=== PATIENT | female | born 1965 | race Caucasian/White ===

== ENCOUNTER 2016-12-07 18:43 | Emergency (ER) | payer OTHER ==
[~2016-12-07] VITALS: Ht 167.6 cm; Wt 72.6 kg
[~2016-12-07 18:43] MED LIST: ASPIRIN81 M4 PO; ATORVASTATIN CA80 M1 PO; BRILINTA90 M1 PO; CYMBALTA60 M1 PO; GABAPENTIN100 M2 PO; HUMALOG100 UNIT/2 SC; LANTUS100 UNIT/1 SC; LISINOPRIL20 M1 PO; TOPIRAMATE200 M2 PO; TRAZODONE HCL100 M1 PO
[2016-12-07 19:00] VITALS: BP 118/75
[2016-12-07] MEDS ORDERED: AUGMENTIN 875-1 EACH PO (19:42)
--- NOTE | 2016-12-07 19:43 | ED EAR COMPLAINT ---
History of Present Illness General Chief Complaint: Ear Complaints Stated Complaint: EAR PAIN Source: patient Exam Limitations: no limitations Vital Signs & Intake/Output Vital Signs & Intake/Output Vital Signs Date Time Temp Pulse Resp B/P Pulse O2 O2 Flow FiO2 Ox Delivery Rate 12/07 1899 98.5 74 20 118/75 97 Room Air Allergies Coded Allergies: NO KNOWN ALLERGIES (12/07/16) Reconcile Medications Amoxicillin/Potassium Clav (Augmentin 875-125 Tablet) 875 MG-125 MG TABLET 1 TAB PO BID SINUSITIS/OTITIS MEDIA Aspirin (Aspirin*) 81 MG TAB.CHEW 81 MG PO DAILY heart health Atorvastatin Calcium 80 MG TABLET 80 MG PO 1700 cholesterol/heart health Duloxetine HCl (Cymbalta) 60 MG CAPSULE.DR 1 CAP PO DAILY DEPRESSION ( Reported) Gabapentin 100 MG CAPSULE 1 CAP PO TID neuropathy Insulin Lispro (Humalog) 100 UNIT/1 ML VIAL 0 SC DAILY DM TYPE I Blood Sugar Meal time Bed time Less than 80 0 0 80-150 3 0 151-200 4 0 201-250 5 0 251-300 6 2 301-350 8 3 351-400 9 4 more than 400 plus 9 and call doctor Insulin-Lantus (Lantus) 100 UNIT/1 ML VIAL 16 UNITS SC QAM DM TYPE 1 Lisinopril 20 MG TABLET 20 MG PO DAILY heart health Ticagrelor (Brilinta) 90 MG TABLET 90 MG PO BID heart health Topiramate 200 MG TABLET 1 TAB PO DAILY MOOD DISORDER (Reported) Trazodone HCl 100 MG TABLET 1 TAB PO QPM SLEEP (Reported) Triage Note: TRIAGE: PT TO ER C/C R EAR PAIN, ONSET MID AFTERNOON, INTERMITTENT SINCE ONSET. PAIN FREE AT TRIAGE. Triage Nurses Notes Reviewed? yes Onset: Abrupt Duration: day(s): (FEW), constant, continues in ED Timing: recent history Injury Environment: home No Modifying Factors: none HPI: 51-year-old female comes into emergency room with runny nose, congestion and right ear pain. Symptoms are going on for the past 3 days. Denies any cough. Denies any fever chills vomiting. Some whooshing noise in her right ear. Denies any other associated symptoms. (JASON CHANEL,EDWINA) Past History Travel History Traveled to [place] past 21 day No Medical History Any Pertinent Medical History? 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 No (EDWINA OCONNELL) Review of Systems Review of Systems Constitutional: Reports: no symptoms. EENTM: Reports: see HPI. Respiratory: Reports: no symptoms. Cardiovascular: Reports: no symptoms. GI: Reports: no symptoms. Genitourinary: Reports: no symptoms. Musculoskeletal: Reports: no symptoms. Skin: Reports: no symptoms. Neurological/Psychological: Reports: no symptoms. Hematologic/Endocrine: Reports: no symptoms. Immunologic/Allergic: Reports: no symptoms. All Other Systems: Reviewed and Negative (EDWINA OCONNELL) Physical Exam Physical Exam General Appearance: well developed/nourished, no apparent distress, alert, awake Head: atraumatic Eyes: Bilateral: normal appearance. Ears: Bilateral: other (SEROUS OTITIS). Nose: NASAL CONGESTION Mouth/Throat: normal mouth inspection, pharynx normal Neck: normal inspection Cardiovascular/Respiratory: normal breath sounds, no respiratory distress Back: normal inspection Neurologic/Psych: awake, alert, oriented x 3, normal mood/affect Skin: intact, normal color, warm/dry (EDWINA OCONNELL) Progress Differential Diagnoses I considered the following diagnoses in my evaluation of the patient: Otitis media, upper respiratory infection, sinusitis, pneumonia, strep pharyngitis, Plan of Care: 12/07/2016 8:19:38 PM Due to active ear pain and fluid behind the ear patient treated for serous otitis media as well as sinusitis. Follow-up with ear nose and throat. Clinically looks well. Nontoxic-appearing. Initial ED EKG: none (EDWINA OCONNELL) Departure Departure Disposition: HOME OR SELF CARE Condition: Stable Clinical Impression Primary Impression: Serous otitis media Secondary Impressions: Sinusitis Referrals: LEONARDO MELISSA,MARYAM ALANIZ MD,MIRIAN (PCP/Family) Additional Instructions: Take Augmentin as prescribed. Drink plenty of fluids. Rest. Follow-up with ear nose and throat doctorif symptoms don't resolve.. Return if any other concerns worsening symptoms. 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 I have also reviewed all the pertinent lab results and diagnostic results. I agree with the findings and the plan of care as documented in the PA's/STATISTICAL MACHINE MECHANIC's documentation. [X] I have reviewed the ED Record and agree with the PA's/STATISTICAL MACHINE MECHANIC's documentation. [] Additions or exceptions (if any) to the PAs/STATISTICAL MACHINE MECHANIC's note and plan are summarized below: [] (TERE MELISSA,BERTHA)
== END 2016-12-07 19:58 ==
LOC: ERH 18:43
DX: H65.93 Unspecified nonsuppurative otitis media, bilateral (principal); J32.9 Chronic sinusitis, unspecified; Z72.0 Tobacco use

== ENCOUNTER 2017-03-14 13:49 | Emergency (ER) | payer OTHER ==
[~2017-03-14] VITALS: Ht 167.6 cm; Wt 69.4 kg
[~2017-03-14 13:49] MED LIST changes: +AUGMENTIN 875-1 EACH PO
--- NOTE | 2017-03-14 14:22 | ED ANKLE/FOOT INJURY COMPLAINT ---
History of Present Illness General Chief Complaint: Lower Extremity Injury Stated Complaint: SON STEPPED ON FOOT, INJURY TO LEFT GREAT TOE Source: patient, old records Exam Limitations: no limitations Vital Signs & Intake/Output Vital Signs & Intake/Output Vital Signs Date Time Temp Pulse Resp B/P B/P Pulse O2 O2 Flow FiO2 Mean Ox Delivery Rate 03/14 1354 98.3 77 20 100/62 97 Room Air Allergies Coded Allergies: NO KNOWN ALLERGIES (12/07/16) Reconcile Medications Amoxicillin/Potassium Clav (Augmentin 875-125 Tablet) 875 MG-125 MG TABLET 1 TAB PO BID SINUSITIS/OTITIS MEDIA Aspirin (Aspirin*) 81 MG TAB.CHEW 81 MG PO DAILY heart health Atorvastatin Calcium 80 MG TABLET 80 MG PO 1700 cholesterol/heart health Duloxetine HCl (Cymbalta) 60 MG CAPSULE.DR 1 CAP PO DAILY DEPRESSION ( Reported) Gabapentin 100 MG CAPSULE 1 CAP PO TID neuropathy Insulin Lispro (Humalog) 100 UNIT/1 ML VIAL 0 SC DAILY DM TYPE I Blood Sugar Meal time Bed time Less than 80 0 0 80-150 3 0 151-200 4 0 201-250 5 0 251-300 6 2 301-350 8 3 351-400 9 4 more than 400 plus 9 and call doctor Insulin-Lantus (Lantus) 100 UNIT/1 ML VIAL 16 UNITS SC QAM DM TYPE 1 Lisinopril 20 MG TABLET 20 MG PO DAILY heart health Ticagrelor (Brilinta) 90 MG TABLET 90 MG PO BID heart health Topiramate 200 MG TABLET 1 TAB PO DAILY MOOD DISORDER (Reported) Trazodone HCl 100 MG TABLET 1 TAB PO QPM SLEEP (Reported) Triage Note: STATES HER SON STEPPED ON HER LEFT GREAT TOE AND HER NAIL IS COMING COMPLETELY OFF AND SHE IS DIABETIC Triage Nurses Notes Reviewed? yes Occurred: this morning Duration: hour(s):, constant, continues in ED Timing: recent history Severity: moderate Pain/Injury Location: Left: 1st toe. Method of Injury: direct blow Modifying Factors: Improves With: immobilization, rest. Worsens With: movement. Associated Symptoms: swelling, GCS 15 since, stiffness LMP (ages 10-50): post menopausal : No Patient currently breastfeeds: No HPI: Several hours prior to admission son stepped on patient's left great toe avulsing the toenail. She denies fever chills nausea vomiting diarrhea abdominal pain chest pain shortness of breath headache dysuria rash bleeding. Past History Travel History Traveled to [place] past 21 day No Medical History Any Pertinent Medical History? 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 No Review of Systems Review of Systems Constitutional: Reports: no symptoms. EENTM: Reports: no symptoms. Respiratory: Reports: no symptoms. Cardiovascular: Reports: no symptoms. GI: Reports: no symptoms. Genitourinary: Reports: no symptoms. Musculoskeletal: Reports: see HPI, joint pain. Skin: Reports: no symptoms. Neurological/Psychological: Reports: no symptoms. Hematologic/Endocrine: Reports: no symptoms. Immunologic/Allergic: Reports: no symptoms. All Other Systems: Reviewed and Negative Physical Exam Physical Exam General Appearance: well developed/nourished, alert, awake, anxious, mild distress Head: atraumatic, normal appearance Eyes: Bilateral: normal appearance, PERRL, EOMI. Ears, Nose, Throat: normal pharynx, normal ENT inspection, hearing grossly normal Neck: normal inspection, supple Cardiovascular/Respiratory: regular rate/rhythm Back: normal inspection, normal range of motion Leg/Knee/Thigh Left: normal range of motion, normal inspection Leg/Knee/Thigh Right: normal range of motion, normal inspection Ankle Left: normal inspection, normal range of motion Ankle Right: normal inspection, normal range of motion Foot Left: evidence of injury, nail injury, soft tissue tenderness Foot Right: normal inspection, normal range of motion Reflexes: 2+: knee (R), knee (L). Neuro/Vascular: normal motor function, normal sensation Tendon: normal tendon function Psychiatric: awake, alert, oriented x 3 Skin: intact, normal color, warm/dry Progress Differential Diagnosis: fracture, sprain, contusion Plan of Care: Orders Procedure Date/time Status XRY-TOES, LEFT 03/14 1417 Active Diagnostic Imaging: Viewed by Me: Radiology Read. Discussed w/RAD: Radiology Read. Radiology Impression: no acute abnormality Departure Departure Time of Disposition: 1502 Disposition: HOME OR SELF CARE Condition: Stable Clinical Impression Primary Impression: Avulsion of toenail of left foot Secondary Impressions: Diabetic foot infection Referrals: RADHA GOFF DPM Call for podiatry evaluation MIRIAN ALANIZ MD (PCP/Family) Departure Forms: Customer Survey General Discharge Information Prescriptions: Current Visit Scripts Nystatin 1 JOSUE TOP BID #1 BOT Ref 5 Ciprofloxacin HCl (Cipro) 1 TAB PO BID #20 TAB
--- NOTE | 2017-03-14 14:57 | RADIOLOGY REPORT ---
EXAMINATION: XR TOES, LEFT CLINICAL INFORMATION: Blunt trauma and nail injury of left great toe COMPARISON: None TECHNIQUE: 3 views of the left toes were obtained. FINDINGS: There is an injury of the nail of the first digit with displacement. There is no acute fracture or cortical disruption. Osseous alignment is anatomic. Joint spaces are maintained. IMPRESSION: Injury of the first digit nail. No osseous abnormality.
[2017-03-14] MEDS ORDERED: NYSTATIN1 EAC5 TOP (15:09)
[2017-03-14] MEDS ORDERED: CIPRO500 M1 PO (15:09)
[2017-03-14 15:23] VITALS: BP 105/60
== END 2017-03-14 15:24 ==
LOC: ERH 13:49
DX: S91.212A Laceration without foreign body of left great toe with damage to nail, initial encounter (principal); E11.628 Type 2 diabetes mellitus with other skin complications
CPT/HCPCS: 73660-LT

== ENCOUNTER 2018-07-10 20:25 | Emergency (ER) | payer OTHER ==
[~2018-07-10] VITALS: Ht 167.6 cm; Wt 70.3 kg
[~2018-07-10 20:25] MED LIST changes: +CIPRO500 M1 PO; +CYCLOBENZAPRINE10 M1 PO; +NYSTATIN1 EAC5 TOP; +PERCOCET 5-3251 EACH PO
--- NOTE | 2018-07-10 20:50 | ED GENERAL ADULT ---
History of Present Illness General Chief Complaint: Abdominal Pain/Flank Pain Stated Complaint: BIBA FLANK PAIN Source: patient Exam Limitations: no limitations Vital Signs & Intake/Output Vital Signs & Intake/Output Vital Signs Date Time Temp Pulse Resp B/P B/P Pulse O2 O2 Flow FiO2 Mean Ox Delivery Rate 07/10 2033 97.9 75 18 157/67 98 Room Air Allergies Coded Allergies: NO KNOWN ALLERGIES (12/07/16) Reconcile Medications Amoxicillin/Potassium Clav (Augmentin 875-125 Tablet) 875 MG-125 MG TABLET 1 TAB PO BID SINUSITIS/OTITIS MEDIA Aspirin (Aspirin*) 81 MG TAB.CHEW 81 MG PO DAILY heart health Atorvastatin Calcium 80 MG TABLET 80 MG PO 1700 cholesterol/heart health Ciprofloxacin HCl (Cipro) 500 MG TABLET 1 TAB PO BID diabetic foot infection Clopidogrel Bisulfate (Plavix) 75 MG TABLET 75 MG PO DAILY CO (Reported) Cyclobenzaprine HCl 10 MG TABLET 1 TAB PO TID SPASMS Duloxetine HCl (Cymbalta) 60 MG CAPSULE.DR 1 CAP PO DAILY DEPRESSION ( Reported) Escitalopram Oxalate (Lexapro) 20 MG TABLET 20 MG PO DAILY DEPRESSION ( Reported) Gabapentin 100 MG CAPSULE 1 CAP PO TID neuropathy Insulin Lispro (Humalog) 100 UNIT/1 ML VIAL 0 SC DAILY DM TYPE I Blood Sugar Meal time Bed time Less than 80 0 0 80-150 3 0 151-200 4 0 201-250 5 0 251-300 6 2 301-350 8 3 351-400 9 4 more than 400 plus 9 and call doctor Insulin-Lantus (Lantus) 100 UNIT/1 ML VIAL 16 UNITS SC QAM DM TYPE 1 Lisinopril 20 MG TABLET 20 MG PO DAILY [facility] Nystatin 100 MILLION UNIT POWDER.EA. 1 JOSUE TOP BID nail infection Oxycodone HCl/Acetaminophen (Percocet 5-325 MG Tablet) 5 MG-325 MG TABLET 1 TAB PO 4 TIMES/DAY PAIN Ticagrelor (Brilinta) 90 MG TABLET 90 MG PO BID heart health Topiramate 200 MG TABLET 1 TAB PO DAILY MOOD DISORDER (Reported) Trazodone HCl 100 MG TABLET 1 TAB PO QPM SLEEP (Reported) Triage Note: SEE NURSE'S NOTES Triage Nurses Notes Reviewed? yes HPI: 53-year-old female with past surgical history significant for prior C-sections presents with right-sided flank pain for 5 days. Pain does not radiate however she took a slip and fall and landed on her right side has had pain ever since. It is exacerbated with movement and alleviated with rest. Moderate in severity. Negative for dysuria, nausea vomiting, constipation diarrhea. Past History Travel History Traveled to [place] past 21 day No Medical History Any Pertinent Medical History? 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 No Review of Systems Review of Systems Constitutional: Reports: no symptoms, see HPI. EENTM: Reports: no symptoms. Respiratory: Reports: no symptoms. Cardiovascular: Reports: no symptoms. GI: Reports: no symptoms. Genitourinary: Reports: no symptoms. Musculoskeletal: Reports: no symptoms. Skin: Reports: no symptoms. Neurological/Psychological: Reports: no symptoms. Hematologic/Endocrine: Reports: no symptoms. Immunologic/Allergic: Reports: no symptoms. All Other Systems: Reviewed and Negative Physical Exam Physical Exam General Appearance: no apparent distress, comfortable Comments: Gen.: Well-nourished, well-developed, no acute respiratory distress. Head: Normocephalic, atraumatic. Eyes: Normal inspection bilaterally Ears: Normal inspection bilaterally Nose: Normal inspection Throat/mouth : Moist mucosa Neck: Supple, full range of motion, no goiter Heart: Regular rate and rhythm, no murmurs rubs or gallops Lungs: Clear to auscultation bilaterally with normal air entry Chest: Nontender Back: Normal range of motion, negative for central or paraspinal tenderness. Abdomen: Soft, nontender, nondistended, normal bowel sounds, right CVA tenderness Extremities: Normal range of motion grossly, equal radial pulses, no cyanosis clubbing or edema Neurologic: Cranial nerves grossly intact, speech is clear Skin: Superficial abrasions and contusions over the right flank. Psychiatric: Calm, cooperative, no apparent delusions or hallucinations Core Measures ACS in differential dx? No CVA/TIA Diagnosis: No Sepsis Present: No Sepsis Focused Exam Completed? No Progress Differential Diagnoses I considered the following diagnoses in my evaluation of the patient: Patient denies cancer unexplained weight loss or immunosuppression, denies IV drug abuse urinary tract infection or recent trauma. Denies pain increased by rest or associated fever. Denies bowel or bladder incontinence or urinary retention. Denies saddle paresthesias or major motor weakness. Plan of Care: Orders Procedure Date/time Status URINALYSIS 07/10 2049 Active CBC WITHOUT DIFFERENTIAL 07/10 2049 Complete BASIC METABOLIC PANEL 07/10 2049 Active Laboratory Tests 07/10/182109: Sodium Pending, Potassium Pending, Chloride Pending, Carbon Dioxide Pending, Anion Gap Pending, BUN Pending, Creatinine Pending, BUN/Creatinine Ratio Pending , Glucose Pending, Calcium Pending, CBC w Diff NO MAN DIFF REQ, RBC 4.21, MCV 89.9, MCH 30.2, MCHC 33.6, RDW 14.0, MPV 8.1, Gran % 76.9 H, Lymphocytes % 13.1 L, Monocytes % 5.7, Eosinophils % 4.1, Basophils % 0.2, Absolute Granulocytes 7.1 H, Absolute Lymphocytes 1.2, Absolute Monocytes 0.5, Absolute Eosinophils 0.4, Absolute Basophils 0 Initial ED EKG: none Comments: Patient regarding pulmonary findings on CT. Negative for nephrolithiasis hydronephrosis UA canceled due to negative history of dysuria. Departure Departure Disposition: HOME OR SELF CARE Condition: Stable Clinical Impression Primary Impression: Flank pain, acute Secondary Impressions: Fall Qualifiers: Encounter type: initial encounter Qualified Code: W19.XXXA - Unspecified fall, initial encounter Referrals: Patient Has No Primary Care Dr Departure Forms: Customer Survey General Discharge Information Comments Please note that there might be incidental findings in your evaluation that are unrelated to the current emergency department visit. Please notify your primary care doctor about this emergency department visit in order to obtain and review all of the testing performed so that these incidental findings can be monitored as needed. If you had an x-ray performed, please understand that some fractures may not be seen on the initial set of x-rays. If your symptoms persist you might need a repeat set of x-rays to check for such a fracture. If you had a laceration evaluated, please understand that foreign bodies such as glass or wood may not be visible to the naked eye or on plain x-rays. If the wound becomes red, swollen, increasingly more painful or if there is any drainage from the wound, please have it reevaluated by a physician for the possibility of a retained foreign body. If you're unable to follow up as outlined in the discharge instructions please return to the emergency department. Critical Care Note Critical Care Note Critical Care Time: non-applicable
[2018-07-10] MEDS ORDERED: LEXAPRO20 M1 PO (20:54)
[2018-07-10] MEDS ORDERED: PLAVIX75 M1 PO (20:54)
[2018-07-10 21:17] LABS: ABSOLUTE BASOPHIL COUNT 0 /CUMM (0.0-0.2); ABSOLUTE EOSINOPHIL COUNT 0.4 /CUMM (0.0-0.7); ABSOLUTE GRANULOCYTE CT 7.1 /CUMM (1.4-6.5); ABSOLUTE LYMPH COUNT 1.2 /CUMM (1.2-3.4); ABSOLUTE MONOCYTE COUNT 0.5 /CUMM (0.10-0.60); BASOPHIL % 0.2 % (0.0-2.0); EOSINOPHIL % 4.1 % (0-5); GRANULOCYTE % 76.9 % (42.2-75.2); HEMATOCRIT 37.8 % (37-47); MEAN CORPUSCULAR HGB 30.2 PG (27.0-31.0); MEAN CORPUSCULAR HGB CONC 33.6 G/DL (33.0-37.0); MEAN CORPUSCULAR VOLUME 89.9 FL (81.0-99.0); MEAN PLATELET VOLUME 8.1 FL (7.4-10.4); PLATELET COUNT 225 /CUMM (130-400); RED BLOOD CELL CT 4.21 /CUMM (4.20-5.40); WHITE BLOOD CELL COUNT 9.3 /CUMM (4.8-10.8)
--- NOTE | 2018-07-10 21:23 | CT SCAN REPORT ---
EXAMINATION: CT ABDOMEN AND PELVIS WITHOUT CONTRAST CLINICAL INFORMATION: Right flank pain. COMPARISON: 05/01/2018. TECHNIQUE: Contiguous axial thin section helical images of the abdomen and pelvis were performed without oral or IV contrast. The data set was reformatted in the coronal and sagittal planes and reviewed on an independent workstation. DLP: 283 mGy-cm. FINDINGS: There is dependent atelectasis at the left lung base. At the right lung base within the posterior basal segment, there is a more prominent focus of opacification. The visualized lung bases are otherwise clear. The visualized portions of the heart are unremarkable. The liver is of normal size and attenuation without focal lesions nor intrahepatic biliary ductal dilation. A normal gallbladder is identified. There is no wall thickening or discernible pericholecystic fluid. The spleen, pancreas, adrenal glands are unremarkable. Both kidneys are of normal size and attenuation without hydronephrosis or nephrolithiasis. There is no abdominal free fluid. There is neither mesenteric nor retroperitoneal lymphadenopathy. Normal unopacified loops of small and large bowel are identified. There is no pelvic free fluid. The urinary bladder is unremarkable. There is neither pelvic nor inguinal lymphadenopathy. Bone windows: Neither sclerotic nor lytic bone lesions are identified. IMPRESSION: Airspace opacification within the posterior basal segments of the right lower lobe. While this could correspond to atelectasis, that it represents a developing pneumonia cannot be excluded. Recommendation is for a followup chest series to be obtained following treatment and/or resolution of symptoms to assure resolution of this appearance. No evidence for acute abdominal or pelvic inflammatory or infectious processes. Neither hydronephrosis nor nephrolithiasis.
[2018-07-10] MEDS ORDERED: NAPROSYN500 M1 PO (21:34)
[2018-07-10 21:42] VITALS: BP 133/60
== END 2018-07-10 21:43 ==
LOC: ERH 20:25
PROVIDERS: Emergency Medicine
DX: R10.31 Right lower quadrant pain (principal)
CPT/HCPCS: 74176; J1885